=== PATIENT | female | born 1955 | race Caucasian/White ===

== ENCOUNTER 2019-05-23 16:42 | Emergency (ER) | payer MEDICARE ==
[~2019-05-23] VITALS: Ht 160 cm; Wt 66.2 kg
[~2019-05-23 16:42] MED LIST: ALLO300 PO; AMOCLA875 PO; ASPI81EC PO; CETI10 PO; CODACE30 PO; DIPATR PO; DULO60 PO; FLUT.05NI; FURO40 PO; GABA300 PO; Glucophage PO; HYDACE5 PO; HYOS.125 SL; Hair, Skin & N1 EACH PO; INSDET100 SQ; INSLI100I; LEVFLO250 PO; LORA10ER PO; MELO7.5 PO; METF500C PO; NIAC500 PO; OLME20-12. PO; OMEP20ER PO; OXYACE5T PO; POTCHL10ER PO; POTCHL20ER PO; PRAV40 PO; PRED20 PO; PREG75 PO; PROM25 PO; Pravachol PO; RANI150 PO; [UNRECOGNIZED DRUG - REMARK]
[2019-05-23] MEDS ORDERED: LISINOPRIL2.5 MG PO (16:56)
[2019-05-23] MEDS ORDERED: ATOR20 PO (16:56)
[2019-05-23 18:03] LABS: BASOPHILS ABSOLUTE AUTO 0.02 K/mm3 (0.00-0.23); BASOPHILS PERCENT AUTO 0 % (0-2); EOSINOPHILS ABSOLUTE AUTO 0.05 K/mm3 (0.00-0.68); EOSINOPHILS PERCENT AUTO 1 % (0-6); Hematocrit 42.3 % (33.0-51.0); Hemoglobin 13.9 g/dL (11.5-16.0); IMMATURE GRAN ABSOLUTE AUTO 0.03 K/mm3 (0.00-0.10); IMMATURE GRAN PERCENT AUTO 0 % (0-1); LYMPHOCYTES ABSOLUTE AUTO 0.86 K/mm3 (0.84-5.20); LYMPHOCYTES PERCENT AUTO 11 % (21-46); MONOCYTES ABSOLUTE AUTO 0.48 K/mm3 (0.16-1.47); MONOCYTES PERCENT AUTO 6 % (4-13); Mean Corpuscular HGB 29.2 pg (26.0-34.0); Mean Corpuscular HGB Conc 32.9 g/dL (31.5-36.5); Mean Corpuscular Volume 89 fL (80-100); Mean Platelet Volume 10.6 fL (9.1-12.4); NEUTROPHILS ABSOLUTE AUTO 6.34 K/mm3 (1.96-9.15); NEUTROPHILS PERCENT AUTO 81 % (41-73); Platelet Count 225 K/mm3 (150-400); RDW Coefficient Variation 12.5 % (11.7-14.2); RDW Standard Deviation 41.1 fL (35.1-46.3); Red Blood Cell Count 4.76 M/mm3 (3.80-5.20); White Blood Cell Count 7.78 K/mm3 (4.00-11.30)
[2019-05-23 18:15] LABS: Alanine Aminotransfer (ALT/SGP 24 U/L (12-78); Albumin, Blood 3.2 g/dL (3.4-5.0); Albumin/Globulin Ratio 0.8 (0.8-1.8); Alk Phos 132 U/L (50-136); Anion Gap 11 mmol/L (6-16); Aspartate Aminotrans (AST/SGOT 20 U/L (12-37); Bilirubin, Total 0.6 mg/dL (0.1-1.0); Blood Urea Nitrogen 30 mg/dL (8-24); Bun/Creatinine Ratio 27.3 (12.0-20.0); CO2, Blood 21 mmol/L (21-32); Calcium, Blood 8.5 mg/dL (8.5-10.1); Chloride, Blood 101 mmol/L (98-108); Glomerular Filtration Rate 53 (60-); Glucose, Blood 382 mg/dL (70-99); Potassium, Blood 4.3 mmol/L (3.5-5.5); Sodium, Blood 133 mmol/L (136-145); Total Protein, Blood 7.2 g/dL (6.4-8.2); Troponin I <0.015 ng/mL (0.000-0.040)
[2019-05-23] MEDS ORDERED: LOPE2C PO (19:00)
[2019-05-23] MEDS ORDERED: ONDA4ODT MM (19:00)
== END 2019-05-23 19:30 | disposition home or self-care (01) ==
LOC: ER 16:42
PROVIDERS: Physician Assistant
DX: R19.7 Diarrhea, unspecified (principal); R11.2 Nausea with vomiting, unspecified; I10 Essential (primary) hypertension; E11.9 Type 2 diabetes mellitus without complications; E78.5 Hyperlipidemia, unspecified
CPT/HCPCS: 36415; 80053; 83690; 84484; 85025; 93005; 93010; 96361; 96374; 96375; 99284-25; A9270-GY; J1170; J1815; J2405; J7120

== ENCOUNTER 2019-10-21 22:55 | Observation (INO) | payer MEDICARE ==
[~2019-10-21] VITALS: Ht 160 cm; Wt 73.0 kg
[~2019-10-21 22:55] MED LIST changes: +ATOR20 PO; -INSDET100 SQ; +LEVEMIR FL100 UNIT/2 SC; +LISINOPRIL2.5 MG PO; +LOPE2C PO; +ONDA4ODT MM
[2019-10-22 02:00] LABS: BASOPHILS ABSOLUTE AUTO 0.06 K/mm3 (0.00-0.23); BASOPHILS PERCENT AUTO 1 % (0-2); EOSINOPHILS ABSOLUTE AUTO 0.24 K/mm3 (0.00-0.68); EOSINOPHILS PERCENT AUTO 2 % (0-6); Hematocrit 38.9 % (33.0-51.0); Hemoglobin 12.8 g/dL (11.5-16.0); IMMATURE GRAN ABSOLUTE AUTO 0.06 K/mm3 (0.00-0.10); IMMATURE GRAN PERCENT AUTO 1 % (0-1); LYMPHOCYTES PERCENT AUTO 21 % (21-46); MONOCYTES ABSOLUTE AUTO 0.55 K/mm3 (0.16-1.47); MONOCYTES PERCENT AUTO 5 % (4-13); Mean Corpuscular HGB Conc 32.9 g/dL (31.5-36.5); Mean Corpuscular Volume 88 fL (80-100); Mean Platelet Volume 10.7 fL (9.1-12.4); NEUTROPHILS ABSOLUTE AUTO 7.73 K/mm3 (1.96-9.15); NEUTROPHILS PERCENT AUTO 71 % (41-73); Platelet Count 231 K/mm3 (150-400); RDW Coefficient Variation 12.9 % (11.7-14.2); RDW Standard Deviation 42.1 fL (35.1-46.3); Red Blood Cell Count 4.41 M/mm3 (3.80-5.20); White Blood Cell Count 10.94 K/mm3 (4.00-11.30)
[2019-10-22 02:11] LABS: Alanine Aminotransfer (ALT/SGP 23 U/L (12-78); Albumin, Blood 3.2 g/dL (3.4-5.0); Albumin/Globulin Ratio 0.9 (0.8-1.8); Alk Phos 153 U/L (50-136); Anion Gap 3 mmol/L (6-16); Aspartate Aminotrans (AST/SGOT 21 U/L (12-37); Bilirubin, Total 0.4 mg/dL (0.1-1.0); Blood Urea Nitrogen 27 mg/dL (8-24); Bun/Creatinine Ratio 40.4 (12.0-20.0); CO2, Blood 26 mmol/L (21-32); Calcium, Blood 8.2 mg/dL (8.5-10.1); Chloride, Blood 108 mmol/L (98-108); Creatinine, Blood 0.67 mg/dL (0.40-1.00); Globulin, Blood 3.6 g/dL (2.2-4.0); Glomerular Filtration Rate >60 (60-); Glucose, Blood 367 mg/dL (70-99); Potassium, Blood 4.8 mmol/L (3.5-5.5); Sodium, Blood 137 mmol/L (136-145); Total Protein, Blood 6.8 g/dL (6.4-8.2)
[2019-10-22] MEDS ORDERED: LOPE2C PO (02:54)
--- NOTE | 2019-10-22 08:01 | NUR ---
PT NEW ADMIT THIS SHIFT FOR LEFT ANKLE FX. PT VSS, PT DENIED PAIN T/O NIGHT. LLE ELEVATED IN BED, CAP REFILL WNL, PT REP N/T AT BASELINE. PT UP OOB W/1 ASSIST, IS USING CALL LIGHT FOR ASSISTANCE. AWAITING ORTHO CONSULT. BEDSIDE REPORT GIVEN TO DAY RN.
--- NOTE | 2019-10-22 19:38 | NUR ---
SHIFT SUMMARY PT HAS A L ANKLE FX. SHE IS AWAITING SURGERY WITH DR. BARBOSA THIS EVENING AT 1999. PT REPORTS HAVING A MITRA ALLERGY, SPECIAL EQUIPMENT NEEDED TO BE ORDERED. PT HAS BEEN TEARFUL AND EMOTIONAL T/O THE DAY, SHE REPORTS SOME FAMILY ISSUES. PAIN HAS BEEN MANAGED WITH IV PAIN MEDICATION X1. PT'S LLE HAS BEEN ELEVATED ON PILLOWS. SHE HAS REMAINED NPO T/O THE DAY. VSS. REPORT GIVEN TO ESTEBAN HERNANDEZ.
--- NOTE | 2019-10-22 19:55 | NUR ---
TAKEN TO OR VIA STRETCHER WITH BUFFONT CAP AND FACE MASK IN PLACE AND CHART AT BEDSIDE, ACCOMPANIED BY OR NURSE AND ANESTHIOLOGIST. REPORTED THAT SHE WILL GO TO ICU FOR RECOVERY AND THEN RETURN TO ROOM 215. WILL CONTINUE TO MONITOR.
--- NOTE | 2019-10-22 21:44 | NUR ---
PT TO ICU 2 FOR POST OP RECOVERY @ 2121, PT AROUSES TO VERBAL STIMULI, CONFUSION NOTED, ASKS IF SHE IS SWIMMING AND IF SHE IS AT HOME, REORIENTED PT TO LOCATION AND EVENT. PT ARRIVED ON 13L PER NRB, TRANSITIONED TO NC AND NOW ON RA, O2 SATURATIONS 95%. PT MOVES ALL EXTREMEMITES AND FOLLOWS DIRECTIONS. REPORTS SOME PAIN TO HEEL OF R FOOT, ELEVATED FOOT TO RELIEVE PRESSURE. SPLINT AND RAFAEL WRAP TO L FOOT, CAP REFFIL<3 SECONDS TO L TOES. BP REMAINS STABLE WITH SBP 150'S-160'S, MONITOR SHOWS SINUS RHYTHM WITH HR 80'S, RR 9-12, PT AFEBRILE.
--- NOTE | 2019-10-22 22:15 | NUR ---
RECEIVED HAND OFF FROM Adri RAND RN IN ICU USING SBAR. TRANSPORTED TO ROOM VIA STRETCHER. TRANSFERED TO BED WITH FULL STAFF ASSISTANCE, TOLERATED WELL. AAO X3, ZHAO, FOLLOWS ALL COMMANDS. REORIENTED TO ROOM, CALL SYSTEM, AND POC, VOICES UNDERSTANDING. LEFT LEG PLACED ON PILLOW FOR COMFORT. LEFT TOES ARE WARM TO TOUCH, WITH GOOD PULSES NOTED DISTALLY. WEB ROLL AND RAFAEL WRAP COVER LLE FROM KNEE TO TOES. HAD C/O PAIN IN RIGHT HEEL POST OP, BUT DENIES AT THIS TIME. RIGHT FA 18G PIV IS PATENT, FLUSHING WITH EASE, POST OP IVF INFUSING TO GRAVITY. WILL CHECK ORDERS. STATES TAHT SHE IS VERY HUNGRY, PROVIDED WITH JELLO, WATER, AND SUGAR FREE APPLE SAUCE. DENIES PAIN, DISCOMFORT OR FURTHER NEEDS AT THIS TIME. SAFETY MEASURES IN PLACE. WILL CONTINUE TO MONITOR.
--- NOTE | 2019-10-23 07:01 | NUR ---
SHIFT SUMMARY LYING IN SEMI FOWLERS WITH EYES OPEN. PAIN MANAGED WITH NORCO AND FENT. IVF INFUSING AND PT IS TOLERATING PO'S AT THIS TIME. DENIES PAIN, DISCOMFORT, OR FURTHER NEEDS AT THIS TIME. LEFT LEG ELEVATED ON PILLOW, SAFETY MEASURES IN PLACE. WILL CONTINUE TO MONITOR AND GIVE HAND OFF TO ONCOMING SHIFT USING SBAR DURING BEDSIDE REPORT.
--- NOTE | 2019-10-23 11:51 | NUR ---
10/23/19 1151 Ruth Ann Gallego VERIFICATIONS: EDIT CHART.
--- NOTE | 2019-10-23 12:42 | NUR ---
BLOOD GLUCOSE DR. ASH NOTIFIED OF LUNCH TIME CBG OF 264. SINCE CBG REMAINS ABOVE 200, DR. ASH WAS NOTIFIED. HE PUT IN ORDERS FOR INCREASE IN BASAL INSULIN DOSE. WILL CONTINUE TO MONITOR.
--- NOTE | 2019-10-23 19:36 | NUR ---
SHIFT SUMMARY PT IS POD# 1 FROM L ANKLE ORIF WITH DR. BARBOSA. PAIN HAS BEEN MANAGED WITH MINIMAL MEDICATION. SHE WAS ABLE TO WORK WITH THERAPY THIS SHIFT AND IS A 1 PERSON ASSIST WITH GAIT BELT AND WALKER. PLAN FOR POSSIBLE DISCHARGE TO SNF TOMORROW. VSS. REPORT GIVEN TO ESTEBAN HERNANDEZ.
--- NOTE | 2019-10-24 04:30 | NUR ---
SHIFT SUMMARY PT IS A/O X4 AND NEEDS 1X ASSIST WITH FWW AND GAIT BELT TO BEDSIDE COMMODE. PT HAS REPORTED SOME DISCOMFORT WITH MOVEMENT BUT DECLINED PAIN MEDS. PT IS TOLERATING PO INTAKE WELL AND IS VOIDING. NO ACUTE CHANGES OVERNIGHT. ASSISTED WITH ADL'S PRN.
--- NOTE | 2019-10-24 14:39 | NUR ---
SHIFT SUMMARY PT A&OX4, VSS, POD2 L ANKLE ORIF, SPLINT/RAFAEL CDI, CAP REFILL WNL, WIGGLES TOES, NWB LLE, EXTREMITY ELEVATED. PAIN MANAGED WELL WITH 5 MG OXYCODONE AND TYLENOL. SERENA PO, DENIES N&V. STAND PIVOTS TO BSC/CHAIR/BED WITH FWW & GB 1 MIN ASSIST. VOIDING WELL. WILL REPORT TO ONCOMING NOC RN.
--- NOTE | 2019-10-25 03:46 | NUR ---
SHIFT SUMMARY POD 3 RIGHT ORIF, RAFAEL WRAP/SPLINT C/D/I. A/OX4 W/VSS, NO TEMP. 1 ASSIST STAND/PIVOT WITH FWW/GB; NWB LLE. PAIN MANAGED WITH PO MEDICATION. SERENA REG DIET. APPEARS TO HAVE SLEPT WELL T/O NIGHT. NO ACUTE CHANGES THIS SHIFT. PLAN FOR SNF. WILL CONT TO MONITOR AND GIVE REPORT TO ONCOMING RN.
--- NOTE | 2019-10-25 08:38 | NUR ---
IMMODIUM REQ DR ASH RECENTLY IN TO SEE PT. PT REPORTS HAVING BM 2 DAYS AGO AND THAT SHE HAS TROUBLE WITH GETTING DIARRHEA AND THAT SHE IS CONCERNED THAT SHE HAS NOT HAD HER IMMODIUM THAT SHE USUALLY TAKES AT HOME. PT EDUCATED ON PAIN MEDICATION CAN ALSO CAUSE CONSTIPATION. PT REPORTS MORE CONCERNED OF HER GETTING DIARRHEA IF NOT TAKING IMMODIUM SHE USUALLY DOES AND THAT IF SHE STARTS FEELING CONSTIPATED THAT SHE WILL SIMPLY STOP TAKING HER IMMODIUM AND SHE WILL HAVE BM. PT MED PER HER REQ.
--- NOTE | 2019-10-25 09:16 | NUR ---
PT RECENTLY REPORTED THAT LANTUS DOSE MAY BE A LITTLE TO MUCH, THAT SHE HAD A SNACK EARLIER THIS AM APPROX 3:00-3:30 IN THE PHYSICS TUTOR AND CBG WAS LESS THAN 100. PT REPORTS TAKING 40-50 UNITS Q DAY DEPENDING ON CBG'S. NOTIFIED, REPORTS TO HOLD DOSE FOR NOW.
--- NOTE | 2019-10-25 10:23 | NUR ---
PT REQ TO HAVE LANTUS DURING DAYTIME INSTEAD OF AT NIGHT THAT WORKS BETTER FOR HER BODY. DR NOTIFIED. SEE ORDERS.
--- NOTE | 2019-10-25 12:34 | NUR ---
REPORT GIVEN TO ANJALI AT [facility] PT IS TO BE DISCHARGED TO REHAB TODAY. SKEIN BANDER ASSISTED WITH BELONGINGS. PT IS TO BE PICKED UP BY TRANSPORT.
--- NOTE | 2019-10-25 12:53 | NUR ---
PT OUT BY TRANSPORT TO [facility] WITH BELONGINGS INCLUDING PHONE AND DRIVER UTILITY WORKER. REPORT BEEN GIVEN.
== END 2019-10-25 12:50 ==
LOC: ER 22:55 → SURS 22:56
PROVIDERS: Emergency Medicine; Podiatrist Foot & Ankle Surgery; ADMIT Family Medicine
PROC: 0QSK04Z Reposition Left Fibula with Internal Fixation Device, Open Approach (ICD-10-PCS; principal; 2019-10-22 08:15)
PROC: 0QSH04Z Reposition Left Tibia with Internal Fixation Device, Open Approach (ICD-10-PCS; principal; 2019-10-22 08:15)
PROC: 0QSK0ZZ Reposition Left Fibula, Open Approach (ICD-10-PCS; principal; 2019-10-22 08:15)
DX: S82.852A Displaced trimalleolar fracture of left lower leg, initial encounter for closed fracture (principal); I10 Essential (primary) hypertension; E11.9 Type 2 diabetes mellitus without complications; Z88.8 Allergy status to other drugs, medicaments and biological substances; Z88.2 Allergy status to sulfonamides; Z79.4 Long term (current) use of insulin; Z79.899 Other long term (current) drug therapy; W18.11XA Fall from or off toilet without subsequent striking against object, initial encounter; Z87.891 Personal history of nicotine dependence
CPT/HCPCS: 27818; 73600; 73610; 73700; 80053; 82947; 85025; 93005; 93010; 96361; 96372; 96374-59; 96375-59; 96376; 97110; 97163; 97166; 97535; 99152; 99285-25; A9270; A9270-GY; C1713; C1769; G0378; J0690; J1100; J1650; J1815; J1885; J2250; J2405; J2704; J3010; J7030

== ENCOUNTER 2021-08-12 18:04 | Emergency (ER) | payer MEDICARE ==
[~2021-08-12] VITALS: Ht 162.6 cm; Wt 64.4 kg
== END 2021-08-12 20:57 | disposition home or self-care (01) ==
LOC: ER 18:04
DX: S01.81XA Laceration without foreign body of other part of head, initial encounter (principal); S60.222A Contusion of left hand, initial encounter; W01.198A Fall on same level from slipping, tripping and stumbling with subsequent striking against other object, initial encounter; Z88.2 Allergy status to sulfonamides; Z91.048 Other nonmedicinal substance allergy status; Z88.8 Allergy status to other drugs, medicaments and biological substances; Z79.899 Other long term (current) drug therapy; Z79.4 Long term (current) use of insulin; I10 Essential (primary) hypertension; E11.9 Type 2 diabetes mellitus without complications; E78.5 Hyperlipidemia, unspecified
CPT/HCPCS: 70450; 72125; 90471; 90714; 99284-25; A9270; L0160

== ENCOUNTER 2021-08-30 17:15 | Inpatient (IN) | payer MEDICARE ==
[~2021-08-30] VITALS: Ht 162.6 cm; Wt 61.8 kg
[~2021-08-30 17:15] MED LIST changes: +HUMALOG KW100 UNIT/1 SC; -INSLI100I
[2021-08-30 18:14] LABS: BASOPHILS ABSOLUTE AUTO 0.06 K/mm3 (0.00-0.23); BASOPHILS PERCENT AUTO 0 % (0-2); EOSINOPHILS PERCENT AUTO 0 % (0-6); Hematocrit 34.2 % (33.0-51.0); Hemoglobin 10.7 g/dL (11.5-16.0); IMMATURE GRAN ABSOLUTE AUTO 0.16 K/mm3 (0.00-0.10); IMMATURE GRAN PERCENT AUTO 1 % (0-1); LYMPHOCYTES ABSOLUTE AUTO 1.39 K/mm3 (0.84-5.20); LYMPHOCYTES PERCENT AUTO 9 % (21-46); MONOCYTES ABSOLUTE AUTO 0.95 K/mm3 (0.16-1.47); MONOCYTES PERCENT AUTO 6 % (4-13); Mean Corpuscular HGB 26.2 pg (26.0-34.0); Mean Corpuscular HGB Conc 31.3 g/dL (31.5-36.5); Mean Corpuscular Volume 84 fL (80-100); Mean Platelet Volume 8.8 fL (9.1-12.4); NEUTROPHILS ABSOLUTE AUTO 12.55 K/mm3 (1.96-9.15); NEUTROPHILS PERCENT AUTO 83 % (41-73); Platelet Count 545 K/mm3 (150-400); RDW Coefficient Variation 14.6 % (11.7-14.2); RDW Standard Deviation 44.7 fL (35.1-46.3); Red Blood Cell Count 4.08 M/mm3 (3.80-5.20); White Blood Cell Count 15.11 K/mm3 (4.00-11.30)
[2021-08-30 18:32] LABS: Alanine Aminotransfer (ALT/SGP 12 U/L (12-78); Albumin, Blood 2.1 g/dL (3.4-5.0); Albumin/Globulin Ratio 0.3 (0.8-1.8); Alk Phos 136 U/L (50-136); Anion Gap 10 mmol/L (6-16); Aspartate Aminotrans (AST/SGOT 20 U/L (12-37); Bilirubin, Total 0.7 mg/dL (0.1-1.0); Blood Urea Nitrogen 22 mg/dL (8-24); Bun/Creatinine Ratio 25.9 (12.0-20.0); CO2, Blood 28 mmol/L (21-32); Calcium, Blood 9.3 mg/dL (8.5-10.1); Chloride, Blood 92 mmol/L (98-108); Creatinine, Blood 0.85 mg/dL (0.40-1.00); Globulin, Blood 6.7 g/dL (2.2-4.0); Glomerular Filtration Rate >60 (60-); Glucose, Blood 324 mg/dL (70-99); Potassium, Blood 4.3 mmol/L (3.5-5.5); Sodium, Blood 130 mmol/L (136-145); Total Protein, Blood 8.8 g/dL (6.4-8.2)
[2021-08-30 20:35] LABS: Source, Urine Clean Catch
[2021-08-30 20:42] LABS: Blood, Urine 3+ (Neg); Glucose Qualitative, Urine Neg (Neg); Ketones, Urine 2+ (Neg); Leukocyte Esterase, Urine 1+ (Neg); Nitrite, Urine Neg (Neg); Protein, Urine 3+ (Neg); Urobilinogen, Urine 3+ (Normal)
[2021-08-30 20:49] LABS: Appearance, Urine Cloudy (Clear); Bilirubin, Urine 1+ (Neg); Color, Urine Yellow (P-Yellow)
[2021-08-30 20:51] LABS: Bacteria Many /hpf; Red Blood Cells, Urine 0-2 /hpf (0-2); Squamous Epithelial Cells Few /hpf (Few)
[2021-08-31 01:24] LABS: BASOPHILS ABSOLUTE AUTO 0.05 K/mm3 (0.00-0.23); BASOPHILS PERCENT AUTO 0 % (0-2); EOSINOPHILS ABSOLUTE AUTO 0.03 K/mm3 (0.00-0.68); EOSINOPHILS PERCENT AUTO 0 % (0-6); Hematocrit 25.2 % (33.0-51.0); Hemoglobin 8.2 g/dL (11.5-16.0); IMMATURE GRAN ABSOLUTE AUTO 0.14 K/mm3 (0.00-0.10); IMMATURE GRAN PERCENT AUTO 1 % (0-1); LYMPHOCYTES ABSOLUTE AUTO 2.76 K/mm3 (0.84-5.20); LYMPHOCYTES PERCENT AUTO 22 % (21-46); MONOCYTES ABSOLUTE AUTO 1.13 K/mm3 (0.16-1.47); MONOCYTES PERCENT AUTO 9 % (4-13); Mean Corpuscular HGB 26.6 pg (26.0-34.0); Mean Corpuscular HGB Conc 32.5 g/dL (31.5-36.5); Mean Corpuscular Volume 82 fL (80-100); Mean Platelet Volume 8.6 fL (9.1-12.4); NEUTROPHILS ABSOLUTE AUTO 8.24 K/mm3 (1.96-9.15); NEUTROPHILS PERCENT AUTO 67 % (41-73); Platelet Count 389 K/mm3 (150-400); RDW Coefficient Variation 14.6 % (11.7-14.2); RDW Standard Deviation 43.3 fL (35.1-46.3); Red Blood Cell Count 3.08 M/mm3 (3.80-5.20); White Blood Cell Count 12.35 K/mm3 (4.00-11.30)
[2021-08-31] MEDS ORDERED: CHOLESTYRAMI239.4 G1 PO (01:36)
[2021-08-31 01:38] LABS: Calcium, Blood 7.8 mg/dL (8.5-10.1); Creatinine, Blood 0.96 mg/dL (0.40-1.00); Potassium, Blood 3.8 mmol/L (3.5-5.5)
--- NOTE | 2021-08-31 05:19 | NUR ---
SHIFT SUMMARY: NEW ADMIT FROM ED UTI. PATIENT ENDORSES PAIN/BURNING WITH URNINATION AND BILATERAL FLANK PAIN. STATES SHE HAS INCREASED WEAKNESS AND INABILITY TO WALK DUE TO FALL. SCABBED LACERATION NOTED TO FOREHEAD. STATES HAS CHRONIC DIARRHEA AND TAKES IMODIUM DAILY. CHRONIC PAIN D/T FIBROMYALGIA. LEFT ANKLE SWOLLEN FROM SURGERY (2 YEARS AGO? SHE CANNOT REMEMBER WHEN). SEEKING PLACEMENT. [facility].
--- NOTE | 2021-08-31 13:11 | NUR ---
Upon receiving a referral for spiritual care, I visit pt. Pt is lying in bed and alert. Pt immediatelt tells me about her fall and her medical issues. She then tells me personal information about some of the emotional pain, family unit complications and challenges that she has endured. She also voices her fears about placement and the fears about going home without help. She shares about her [place] barbi and how valuable it is to her during this season. I encourage self-care, reinforce helpful attitudes and practices and provide therapeutic listening, spiritual guidance, anxiety containment and prayer. Patient responds well and shows signs of increased peace. I will continue to remain available to patient and family.
--- NOTE | 2021-08-31 17:59 | NUR ---
SHIFT SUMMARY PATIENT MEDICATED FOR PAIN X1. PATIENT DENIES NAUSEA AND SHORTNESS OF BREATH. PATIENT IS A SBA TO THE BATHROOM. PATIENT WORKED WITH PT AND OT. THEY ARE RECOMMENDING SNF. PATIENT SLEPT THIS AFTERNOON. ORDERS FOR STOOL SAMPLE, PATIENT EDUCATED, NO STOOL THIS SHIFT. PATIENT IS EATING AND DRINKING WELL. PATIENT IS PLEASANT AND COOPERATIVE WITH CARE.
--- NOTE | 2021-09-01 04:37 | NUR ---
SHIFT SUMMARY PT RESTED WELL, MED PER MAR FOR C/O CHRONIC BACK PAIN, PT REPOSITIONED AND HEATING PAD APPLIED TO LOWER BACK. PT SERENA PO WELL, NO C/O NAUSEA, VOIDING WITHOUT DIFFICULTY, NO BM THIS SHIFT, WAITING TO SEND STOOL SAMPLE PER ORDERS. VSS, SR NOTED ON TELE, AFEBRILE, ABX'S PER JUL. ANTICIPATE D/C WHEN MEDICALLY STABLE AND PLACEMENT DETERMINED.
[2021-09-01 08:25] LABS: BASOPHILS ABSOLUTE AUTO 0.07 K/mm3 (0.00-0.23); BASOPHILS PERCENT AUTO 1 % (0-2); EOSINOPHILS PERCENT AUTO 1 % (0-6); Hematocrit 25.5 % (33.0-51.0); IMMATURE GRAN PERCENT AUTO 1 % (0-1); LYMPHOCYTES ABSOLUTE AUTO 1.64 K/mm3 (0.84-5.20); LYMPHOCYTES PERCENT AUTO 17 % (21-46); MONOCYTES ABSOLUTE AUTO 0.66 K/mm3 (0.16-1.47); MONOCYTES PERCENT AUTO 7 % (4-13); Mean Corpuscular HGB 26.1 pg (26.0-34.0); Mean Corpuscular HGB Conc 31.4 g/dL (31.5-36.5); Mean Corpuscular Volume 83 fL (80-100); Mean Platelet Volume 8.8 fL (9.1-12.4); NEUTROPHILS ABSOLUTE AUTO 7.39 K/mm3 (1.96-9.15); NEUTROPHILS PERCENT AUTO 74 % (41-73); Platelet Count 369 K/mm3 (150-400); RDW Coefficient Variation 14.9 % (11.7-14.2); RDW Standard Deviation 45.1 fL (35.1-46.3); Red Blood Cell Count 3.06 M/mm3 (3.80-5.20); White Blood Cell Count 9.96 K/mm3 (4.00-11.30)
[2021-09-01 08:47] LABS: Bun/Creatinine Ratio 15.4 (12.0-20.0); Calcium, Blood 7.9 mg/dL (8.5-10.1); Creatinine, Blood 1.23 mg/dL (0.40-1.00)
--- NOTE | 2021-09-01 17:53 | NUR ---
SHIFT SUMMARY PATIENT MEDICATED FOR PAIN X1. PATIENT DENIES NAUSEA AND SHORTNESS OF BREATH. PATIENT IS A SBA WITH A FWW. PATIENT WORKED WITH PT AND OT. PATIENT AMBULATED IN THE HALLWAY TODAY WITH PT. PATIENT HAD POSITIVE URINE CULTURE FOR E.COLI. DR. JOHNS NOTIFIED. NEW ORDERS. PATIENT ALSO HAD POSITIVE BLOOD CULTURES X2 OVERNIGHT. MD AWARE. PATIENT IS EATING AND DRINKING WELL. PATIENT IS PLEASANT AND COOPERATIVE WITH CARE.
--- NOTE | 2021-09-02 06:28 | NUR ---
SHIFT SUMMARY PT RESTED WELL, C/O MILD PAIN TO LOWER BACK, MED PER JUL, UP WITH 1 ASSIST/WALKER, VOIDING WITHOUT DIFFICULTY, NO BM THIS SHIFT, UNABLE TO SEND STOOL SAMPLE YET. VSS, AFEBRILE, ABX'S PER JUL. ANTICIPATE D/C WHEN MEDICALLY STABLE AND PLACEMENT DETERMINED.
[2021-09-02 07:12] LABS: BASOPHILS ABSOLUTE AUTO 0.07 K/mm3 (0.00-0.23); BASOPHILS PERCENT AUTO 1 % (0-2); EOSINOPHILS ABSOLUTE AUTO 0.17 K/mm3 (0.00-0.68); EOSINOPHILS PERCENT AUTO 2 % (0-6); Hematocrit 25.4 % (33.0-51.0); Hemoglobin 7.9 g/dL (11.5-16.0); IMMATURE GRAN ABSOLUTE AUTO 0.07 K/mm3 (0.00-0.10); IMMATURE GRAN PERCENT AUTO 1 % (0-1); LYMPHOCYTES ABSOLUTE AUTO 1.89 K/mm3 (0.84-5.20); LYMPHOCYTES PERCENT AUTO 21 % (21-46); MONOCYTES ABSOLUTE AUTO 0.79 K/mm3 (0.16-1.47); MONOCYTES PERCENT AUTO 9 % (4-13); Mean Corpuscular HGB 26.2 pg (26.0-34.0); Mean Corpuscular HGB Conc 31.1 g/dL (31.5-36.5); Mean Corpuscular Volume 84 fL (80-100); Mean Platelet Volume 8.9 fL (9.1-12.4); NEUTROPHILS ABSOLUTE AUTO 6.18 K/mm3 (1.96-9.15); NEUTROPHILS PERCENT AUTO 67 % (41-73); Platelet Count 331 K/mm3 (150-400); RDW Coefficient Variation 14.8 % (11.7-14.2); RDW Standard Deviation 46.2 fL (35.1-46.3); Red Blood Cell Count 3.02 M/mm3 (3.80-5.20); White Blood Cell Count 9.17 K/mm3 (4.00-11.30)
[2021-09-02 07:32] LABS: Albumin, Blood 1.5 g/dL (3.4-5.0); Albumin/Globulin Ratio 0.3 (0.8-1.8); Bilirubin, Total 0.2 mg/dL (0.1-1.0); Bun/Creatinine Ratio 15.8 (12.0-20.0); Calcium, Blood 7.4 mg/dL (8.5-10.1); Creatinine, Blood 1.14 mg/dL (0.40-1.00); Globulin, Blood 5.3 g/dL (2.2-4.0); Potassium, Blood 3.6 mmol/L (3.5-5.5); Total Protein, Blood 6.8 g/dL (6.4-8.2)
[2021-09-02 08:39] LABS: IMMATURE RETIC FRACTION 15.6 % (2.3-16.0); RETIC HGB EQUIVALENT 25.5 pg (28.20-36.60); RETICULOCYTE COUNT PERCENT 1.93 % (0.50-2.50)
[2021-09-02 08:54] LABS: Percent Saturation 12.7 % (15.0-50.0)
--- NOTE | 2021-09-02 17:33 | NUR ---
SHIFT SUMMARY PT AWAKE DURING SHIFT REPORT, RESTING QUIETLY. NO C/O. UP TO BTHRM WITH SBA USING FWW NEEDED. UP TO CHAIR AT BS FOR MEALS. SR ON TELE. DR CABRALES IN TO SEE PT EARLY THIS AM. DISCUSSED PLAN OF CARE; ABX TO CHANGED. PT WILL NEED TO STAY ANOTHER DAY OR TWO. DR PATEL IN TO SEE PT WELL. NEW ORDERS PLACED. PT UP TO SHOWER THIS AFTERNOON. MEDICATED PER EMAR FOR C/O BACK PAIN. DENIED FURTHER NEEDS AT THIS TIME. SITTING IN CHAIR AT BS, EATING DINNER. CALL LT IN REACH.
[2021-09-03 04:48] LABS: BASOPHILS ABSOLUTE AUTO 0.05 K/mm3 (0.00-0.23); BASOPHILS PERCENT AUTO 1 % (0-2); EOSINOPHILS ABSOLUTE AUTO 0.26 K/mm3 (0.00-0.68); EOSINOPHILS PERCENT AUTO 2 % (0-6); Hematocrit 25.8 % (33.0-51.0); IMMATURE GRAN ABSOLUTE AUTO 0.09 K/mm3 (0.00-0.10); IMMATURE GRAN PERCENT AUTO 1 % (0-1); LYMPHOCYTES PERCENT AUTO 21 % (21-46); MONOCYTES ABSOLUTE AUTO 0.86 K/mm3 (0.16-1.47); MONOCYTES PERCENT AUTO 8 % (4-13); Mean Corpuscular Volume 84 fL (80-100); Mean Platelet Volume 8.7 fL (9.1-12.4); NEUTROPHILS ABSOLUTE AUTO 7.44 K/mm3 (1.96-9.15); NEUTROPHILS PERCENT AUTO 68 % (41-73); Platelet Count 301 K/mm3 (150-400); Red Blood Cell Count 3.08 M/mm3 (3.80-5.20)
[2021-09-03 05:16] LABS: Anion Gap 6 mmol/L (6-16); Blood Urea Nitrogen 17 mg/dL (8-24); Bun/Creatinine Ratio 21.9 (12.0-20.0); CO2, Blood 28 mmol/L (21-32); Calcium, Blood 7.4 mg/dL (8.5-10.1); Chloride, Blood 101 mmol/L (98-108); Creatinine, Blood 0.78 mg/dL (0.40-1.00); Glomerular Filtration Rate >60 (60-); Glucose, Blood 163 mg/dL (70-99); Potassium, Blood 3.6 mmol/L (3.5-5.5); Sodium, Blood 135 mmol/L (136-145)
--- NOTE | 2021-09-03 06:28 | NUR ---
SHIFT SUMMARY PT RESTED WELL, MED PER MAR FOR C/O CHRONIC PAIN, SERENA PO WELL, VOIDING WITHOUT DIFFICULTY. PT HAD A LARGE, SOFT, BROWN STOOL THIS AM, SAMPLE SENT TO LAB PER ORDERS. VSS, UP WITH 1 PERSON ASSIST/ WALKER. AFEBRILE, ABX'S PER MAR, ANTICIPATE D/C WHEN MEDICALLY STABLE AND PLACEMENT DETERMINED.
[2021-09-03 08:26] LABS: Adenovirus F 40/41 Not Detected (NOT DETECT); Astrovirus Not Detected (NOT DETECT); Campylobacter Sp Not Detected (NOT DETECT); Cryptosporidium Not Detected (NOT DETECT); Cyclospora Cayetanensis Not Detected (NOT DETECT); E. Coli O157 Not Detected (NOT DETECT); Entamoeba Histolytica Not Detected (NOT DETECT); Enteroaggregative E. coli-EAEC Not Detected (NOT DETECT); Enteropathogenic E. coli-EPEC Not Detected (NOT DETECT); Enterotoxigenic E. coli-ETEC Not Detected (NOT DETECT); Giardia Lamblia Not Detected (NOT DETECT); Norovirus GI/GII Not Detected (NOT DETECT); Plesiomonas Shigelloides Not Detected (NOT DETECT); Rotavirus A Not Detected (NOT DETECT); Salmonella Sp Not Detected (NOT DETECT); Sapovirus Not Detected (NOT DETECT); Shiga Toxin-prod E. coli-STEC Not Detected (NOT DETECT); Shigella/Enteroin E. coli-EIEC Not Detected (NOT DETECT); Vibrio Cholerae Not Detected (NOT DETECT); Vibrio Sp Not Detected (NOT DETECT); Yersinia Enterocolitica Not Detected (NOT DETECT)
[2021-09-03 10:33] LABS: Stool Occult Blood Guaiac 1 Neg (Neg)
--- NOTE | 2021-09-03 16:39 | NUR ---
SHIFT SUMMARY NO ACUTE CHANGES TO PRESENT THIS SHIFT. PT CONTINUES TO RECEIVE IV ABX PER EMAR AND THEN POSSIBLE D/C TO SNF IN THE NEXT DAY OR TWO. PT IS A&O, PLEASANT AND CO-OP. UP WITH SBA USING FWW TO BTHRM. PT UP TO SHOWER THIS AM WELL. LINENS AND GOWN CHANGED. UP TO CHAIR FOR MEALS. CALLS FOR ASSIST NEEDED. IN TO VISIT THIS AFTERNOON. DENIES FURTHER NEEDS AT THIS TIME. CALL LT IN REACH.
--- NOTE | 2021-09-04 02:53 | NUR ---
CRYSTAL MACHINING COORDINATOR SUMMARY HAS BEEN RESTING QUIETLY WITH FEW INTERRUPTIONS SINCE HS. VSS. NO NOTED S/S ACUTE DISTRESS. ORIENTED TO CALL LIGHT, CALL LIGHT IN REACH.
[2021-09-04 05:00] LABS: BASOPHILS ABSOLUTE AUTO 0.06 K/mm3 (0.00-0.23); BASOPHILS PERCENT AUTO 1 % (0-2); EOSINOPHILS ABSOLUTE AUTO 0.17 K/mm3 (0.00-0.68); EOSINOPHILS PERCENT AUTO 2 % (0-6); Hematocrit 27.1 % (33.0-51.0); Hemoglobin 8.3 g/dL (11.5-16.0); IMMATURE GRAN PERCENT AUTO 1 % (0-1); LYMPHOCYTES ABSOLUTE AUTO 2.32 K/mm3 (0.84-5.20); LYMPHOCYTES PERCENT AUTO 22 % (21-46); MONOCYTES ABSOLUTE AUTO 0.84 K/mm3 (0.16-1.47); MONOCYTES PERCENT AUTO 8 % (4-13); Mean Corpuscular HGB 25.9 pg (26.0-34.0); Mean Corpuscular HGB Conc 30.6 g/dL (31.5-36.5); Mean Corpuscular Volume 85 fL (80-100); Mean Platelet Volume 8.5 fL (9.1-12.4); NEUTROPHILS PERCENT AUTO 67 % (41-73); Platelet Count 300 K/mm3 (150-400); RDW Coefficient Variation 15.1 % (11.7-14.2); RDW Standard Deviation 46.5 fL (35.1-46.3); White Blood Cell Count 10.49 K/mm3 (4.00-11.30)
[2021-09-04 05:33] LABS: Anion Gap 7 mmol/L (6-16); Blood Urea Nitrogen 19 mg/dL (8-24); Bun/Creatinine Ratio 24.5 (12.0-20.0); CO2, Blood 28 mmol/L (21-32); Calcium, Blood 7.5 mg/dL (8.5-10.1); Chloride, Blood 103 mmol/L (98-108); Creatinine, Blood 0.77 mg/dL (0.40-1.00); Glomerular Filtration Rate >60 (60-); Glucose, Blood 158 mg/dL (70-99); Potassium, Blood 3.6 mmol/L (3.5-5.5); Sodium, Blood 138 mmol/L (136-145)
--- NOTE | 2021-09-04 18:17 | NUR ---
SHIFT SUMMARY- PT ALERT AND ORIENTED, 1PA FOR TRANSFERS, PT IS A HIGH FALL RISK, BUT SHE CALLS APPROPRIATELY. PT IS ORIENTED AND ALERT. PLAN IS FOR PT TO DC TO SNF FOR BODY TECHNICIAN ABX AND PT. PT STATED SHE HAD HER CELL PHONE WITH HER IN THE HOSPITAL AND YESTERDAY SHE BELIEVES IT WENT OUT WITH THE DIRTY [facility]. CONTACTED PT [employer] FOR HER THEY ARE WORKING TO SEE IF IT CAN BE LOCATED, PATIENT IS AWARE. PT CURRENTLY SITTING UP IN THE CHAIR, CALL LIGHT IN REACH NO S&S OF DISTRESS WILL CTM AND PASS ON TO NIGHT RN IN BEDSIDE REPORT.
--- NOTE | 2021-09-05 03:22 | NUR ---
BRANCH CHIEF SUMMARY HAS BEEN RESTING QUIETLY WITH FEW INTERRUPTIONS SINCE HS. VSS. IV ANTIBIOTICS ADMINISTERED ORDERED - SEE MAR FOR DETAILS. UP TO BATHROOM WITH ASSIST A FWE TIMES, VOIDED CLEAR YELLOW. CALL LIGHT IN REACH. NO C/O VOICED
--- NOTE | 2021-09-05 17:50 | NUR ---
DAY SHIFT SUMMARY 65 YR OLD FEMALE PT ADMITTED WITH UTI/SEPSIS. WAITING SNF PLACEMENT. A/O X4, PT ON RA, LUNG SOUNDS DIM AT BASES. NO ACUTE CHANGES THIS SHIFT. CALL LIGHT IN REACH, ABLE TO CALL APPROPRIATELY.
--- NOTE | 2021-09-06 06:13 | NUR ---
SHIFT SUMMARY PT IS A 65 Y/O FEMALE, ADMITTED FOR SEPSIS AND UTI. SHE IS A&O X 4, 1PA TO THE BATHROOM. SHE WAS MEDICATED FOR LOWER BACK PAIN WITH PRN TYLENOL. NO C/O NAUSEA OR SOB. VITAL SIGNS STABLE. NO ACUTE CHANGES IN PT CONDITION NOTED DURING THE NIGHT. WILL CONTINUE TO MONITOR AND TREAT PER EMAR UNTIL HAND OFF TO DAY SHIFT RN.
[2021-09-06] MEDS ORDERED: CEFAZOLIN2 GM/50 M3 (12:57)
[2021-09-06] MEDS ORDERED: FOLI1 PO (12:58)
[2021-09-06] MEDS ORDERED: VISBIOME 112.51 EACH PO (12:59)
--- NOTE | 2021-09-06 16:35 | NUR ---
DAY SHIFT SUMMARY 65 YR OLD FEMALE ADMITTED WITH SEPSIS. PT IS A STANDBY ASSIST WITH WALKER TO BATHROOM. ABLE TO GET BACK AND FORTH FROM BED TO CHAIR AND BACK TO BED WITH STANDBY AND WALKER. WAITING SNF PLACEMENT FOR REHAB AND ABX IV THERAPY. DISCHARGE ORDERS WAITING INSURANCE AUTHORIZATION FOR REHAB. [facility] WITH COVERAGE. PT ON RA. CALL LIGHT WITHIN REACH AND ABLE TO CALL APPROPRIATELY. NO ACUTE CHANGES THIS SHIFT.
--- NOTE | 2021-09-07 03:03 | NUR ---
SHIFT SUMMARY NO ACUTE CHANGES OVERNIGHT. PT DENIES PAIN T/O SHIFT. SLEPT GOOD. VOIDS WITHOUT ISSUE WITH THE USE OF BATHROOM WITH SBA AND FWW. VSS. CBG HS WAS 250. SALINE LOCKED. IV ABX ADMINISTERED. ADA DIET WITH AC/HS. TOLERATING PO INTAKE. DENIES N/V. PLAN: PENDING FOR SNF PLACEMENT AND ABX [facility] TREATMENT. CALL LIGHT WITHIN REACH. WILL PROVIDE REPORT TO ONCOMING NURSE.
[2021-09-07 11:02] LABS: Influenza A, PCR NEGATIVE (NEGATIVE); Influenza B, PCR NEGATIVE (NEGATIVE); Resp Syncytial Virus, PCR NEGATIVE (NEGATIVE); SARS-Cov-2 (COVID-19) PCR, MMC NEGATIVE (NEGATIVE)
--- NOTE | 2021-09-07 14:49 | NUR ---
DISCHARGE SUMMARY PATIENT DISCHARGED TO [facility] FOR IV ANTIBIOTIC TREATMENT. REPORT CALLED TO NEDA HERNANDEZ. ALL QUESTIONS ANSWERED. PATIENT TAKEN VIA PERSONAL VEHICLE AND THIS WAS APPROVED BY CN AND RECEIVING FACILITY. POWERGLIDE PLACED PRIOR TO DISCHARGE, ALL OTHER IV'S REMOVED. PATIENT GIVEN DISCHARGE PACKET FOR [facility]. PATIENT AND ALL BELONGINGS TAKEN TO PERSONAL VEHICLE VIA WHEELCHAIR AND TO TRANSPORT PATIENT TO [facility].
== END 2021-09-07 14:42 | DRG 872 ==
LOC: ER 17:15 → MEDS 17:16 → ENPENDDIS 09-06 16:45 → MEDS 09-07 14:42
PROVIDERS: Family Medicine; Physician Assistant; Student in an Organized Health Care Education/Training Program; ADMIT Internal Medicine
DX: A41.01 Sepsis due to Methicillin susceptible Staphylococcus aureus (principal); N39.0 Urinary tract infection, site not specified; E87.1 Hypo-osmolality and hyponatremia; I10 Essential (primary) hypertension; Z20.822 Contact with and (suspected) exposure to COVID-19; D72.829 Elevated white blood cell count, unspecified; D64.9 Anemia, unspecified; M21.962 Unspecified acquired deformity of left lower leg; K52.9 Noninfective gastroenteritis and colitis, unspecified; E78.5 Hyperlipidemia, unspecified; E87.6 Hypokalemia; G89.29 Other chronic pain; M54.9 Dorsalgia, unspecified; E11.9 Type 2 diabetes mellitus without complications; M79.7 Fibromyalgia; E78.00 Pure hypercholesterolemia, unspecified; E86.0 Dehydration; Z79.4 Long term (current) use of insulin; Z79.899 Other long term (current) drug therapy; Z88.2 Allergy status to sulfonamides; Z88.8 Allergy status to other drugs, medicaments and biological substances; Z86.73 Personal history of transient ischemic attack (TIA), and cerebral infarction without residual deficits
CPT/HCPCS: 0241U; 36415; 70450; 80048; 80053; 81001; 82272; 82607; 82728; 82746; 82947; 83540; 83550; 83605; 85025; 85045; 87040; 87077; 87086; 87186; 87507; 93306; 96374; 96375; 97110; 97116; 97116-CQ; 97161; 97166; 97530; 97535; 99285-25; A9270; J0690; J0696; J1650; J1815; J1885; J2543; J3370; J3480; J7030; J7040; J7050; P9612

== ENCOUNTER 2021-10-27 11:44 | Emergency (ER) | payer MEDICARE ==
[~2021-10-27] VITALS: Ht 162.6 cm; Wt 59.9 kg
[~2021-10-27 11:44] MED LIST changes: +CEFAZOLIN2 GM/50 M3; +CHOLESTYRAMI239.4 G1 PO; +FOLI1 PO; +VISBIOME 112.51 EACH PO
[2021-10-27 13:49] LABS: BASOPHILS ABSOLUTE AUTO 0.05 K/mm3 (0.00-0.23); BASOPHILS PERCENT AUTO 0 % (0-2); EOSINOPHILS ABSOLUTE AUTO 0.03 K/mm3 (0.00-0.68); EOSINOPHILS PERCENT AUTO 0 % (0-6); Hematocrit 32.9 % (33.0-51.0); Hemoglobin 10.4 g/dL (11.5-16.0); IMMATURE GRAN ABSOLUTE AUTO 0.03 K/mm3 (0.00-0.10); IMMATURE GRAN PERCENT AUTO 0 % (0-1); LYMPHOCYTES ABSOLUTE AUTO 1.13 K/mm3 (0.84-5.20); LYMPHOCYTES PERCENT AUTO 10 % (21-46); MONOCYTES ABSOLUTE AUTO 0.58 K/mm3 (0.16-1.47); MONOCYTES PERCENT AUTO 5 % (4-13); Mean Corpuscular HGB 26.7 pg (26.0-34.0); Mean Corpuscular HGB Conc 31.6 g/dL (31.5-36.5); Mean Corpuscular Volume 84 fL (80-100); Mean Platelet Volume 9.1 fL (9.1-12.4); NEUTROPHILS ABSOLUTE AUTO 9.87 K/mm3 (1.96-9.15); NEUTROPHILS PERCENT AUTO 84 % (41-73); Platelet Count 348 K/mm3 (150-400); RDW Coefficient Variation 16.6 % (11.7-14.2); RDW Standard Deviation 51.1 fL (35.1-46.3); White Blood Cell Count 11.69 K/mm3 (4.00-11.30)
[2021-10-27 14:04] LABS: Albumin, Blood 2.8 g/dL (3.4-5.0); Albumin/Globulin Ratio 0.5 (0.8-1.8); Bilirubin, Total 0.7 mg/dL (0.1-1.0); Bun/Creatinine Ratio 40.4 (12.0-20.0); Calcium, Blood 9.6 mg/dL (8.5-10.1); Creatinine, Blood 0.82 mg/dL (0.40-1.00); Globulin, Blood 5.1 g/dL (2.2-4.0); Potassium, Blood 4.2 mmol/L (3.5-5.5); Total Protein, Blood 7.9 g/dL (6.4-8.2)
[2021-10-27 14:14] LABS: Source, Urine Straight Cath
[2021-10-27 14:32] LABS: Appearance, Urine Clear (Clear); Bilirubin, Urine Neg (Neg); Blood, Urine 2+ (Neg); Color, Urine Yellow (P-Yellow); Glucose Qualitative, Urine Neg (Neg); Ketones, Urine 1+ (Neg); Leukocyte Esterase, Urine Neg (Neg); Nitrite, Urine Neg (Neg); Protein, Urine 3+ (Neg); Specific Gravity, Urine 1.015 (1.003-1.022); Urobilinogen, Urine 1+ (Normal)
[2021-10-27 14:42] LABS: Bacteria Mod /hpf; Squamous Epithelial Cells Few /hpf (Few)
== END 2021-10-27 17:19 | disposition home or self-care (01) ==
LOC: ER 11:44
PROVIDERS: Emergency Medicine
DX: N12 Tubulo-interstitial nephritis, not specified as acute or chronic (principal); E11.9 Type 2 diabetes mellitus without complications; M79.7 Fibromyalgia; Z79.4 Long term (current) use of insulin; Z79.899 Other long term (current) drug therapy
CPT/HCPCS: 36415; 74177; 80053; 81001; 83605; 83690; 85025; 93005; 93010; 96374; 99284-25; A9270; J1956; J7030; P9612; Q9967

== ENCOUNTER 2021-10-28 16:20 | Inpatient (IN) | payer MEDICARE ==
[~2021-10-28] VITALS: Ht 162.6 cm; Wt 61.4 kg
[2021-10-28 16:55] LABS: BASOPHILS ABSOLUTE AUTO 0.04 K/mm3 (0.00-0.23); BASOPHILS PERCENT AUTO 1 % (0-2); EOSINOPHILS ABSOLUTE AUTO 0.08 K/mm3 (0.00-0.68); EOSINOPHILS PERCENT AUTO 1 % (0-6); Hematocrit 31.9 % (33.0-51.0); Hemoglobin 10.1 g/dL (11.5-16.0); IMMATURE GRAN ABSOLUTE AUTO 0.03 K/mm3 (0.00-0.10); IMMATURE GRAN PERCENT AUTO 0 % (0-1); LYMPHOCYTES ABSOLUTE AUTO 2.02 K/mm3 (0.84-5.20); LYMPHOCYTES PERCENT AUTO 24 % (21-46); MONOCYTES ABSOLUTE AUTO 0.73 K/mm3 (0.16-1.47); MONOCYTES PERCENT AUTO 9 % (4-13); Mean Corpuscular HGB 26.7 pg (26.0-34.0); Mean Corpuscular HGB Conc 31.7 g/dL (31.5-36.5); Mean Corpuscular Volume 84 fL (80-100); NEUTROPHILS ABSOLUTE AUTO 5.55 K/mm3 (1.96-9.15); NEUTROPHILS PERCENT AUTO 66 % (41-73); Platelet Count 376 K/mm3 (150-400); RDW Coefficient Variation 16.7 % (11.7-14.2); RDW Standard Deviation 51.4 fL (35.1-46.3); Red Blood Cell Count 3.78 M/mm3 (3.80-5.20); White Blood Cell Count 8.45 K/mm3 (4.00-11.30)
[2021-10-28 17:07] LABS: Albumin, Blood 2.5 g/dL (3.4-5.0); Albumin/Globulin Ratio 0.5 (0.8-1.8); Bilirubin, Total 0.3 mg/dL (0.1-1.0); Bun/Creatinine Ratio 27.1 (12.0-20.0); Calcium, Blood 9.1 mg/dL (8.5-10.1); Creatinine, Blood 0.89 mg/dL (0.40-1.00); Globulin, Blood 4.9 g/dL (2.2-4.0); Potassium, Blood 3.9 mmol/L (3.5-5.5); Total Protein, Blood 7.4 g/dL (6.4-8.2)
--- NOTE | 2021-10-29 01:38 | NUR ---
ON 10/28/2021 AT 2051, PT ADMITTED FROM ER TO ROOM 364 VIA STRETCHER. PT A & OX4. REPORTED GIVEN TO CLINICAL OPERATIONS CONSULTANT BY JER BRAGA NURSE.
[2021-10-29 04:33] LABS: BASOPHILS ABSOLUTE AUTO 0.03 K/mm3 (0.00-0.23); BASOPHILS PERCENT AUTO 0 % (0-2); EOSINOPHILS ABSOLUTE AUTO 0.05 K/mm3 (0.00-0.68); EOSINOPHILS PERCENT AUTO 1 % (0-6); Hemoglobin 8.7 g/dL (11.5-16.0); IMMATURE GRAN ABSOLUTE AUTO 0.02 K/mm3 (0.00-0.10); IMMATURE GRAN PERCENT AUTO 0 % (0-1); LYMPHOCYTES ABSOLUTE AUTO 1.63 K/mm3 (0.84-5.20); LYMPHOCYTES PERCENT AUTO 22 % (21-46); MONOCYTES ABSOLUTE AUTO 0.65 K/mm3 (0.16-1.47); MONOCYTES PERCENT AUTO 9 % (4-13); Mean Corpuscular HGB 26.4 pg (26.0-34.0); Mean Corpuscular HGB Conc 31.1 g/dL (31.5-36.5); Mean Corpuscular Volume 85 fL (80-100); Mean Platelet Volume 8.9 fL (9.1-12.4); NEUTROPHILS ABSOLUTE AUTO 5.04 K/mm3 (1.96-9.15); NEUTROPHILS PERCENT AUTO 68 % (41-73); Platelet Count 305 K/mm3 (150-400); RDW Coefficient Variation 16.7 % (11.7-14.2); RDW Standard Deviation 52.6 fL (35.1-46.3); White Blood Cell Count 7.42 K/mm3 (4.00-11.30)
--- NOTE | 2021-10-29 04:54 | NUR ---
A&OX4. BP:SYS>160; PRN HYDRALAZINE IV GIVEN FOR HTN PER EMAR. HTN RESOLVED. V/S WNL. UP TO BSC,1-ASSIST WITH FWW&GB. SCD'S IN PLACE AND ON. TELE:SR AT A HR OF 83BPM. IV TO L) AC; NS INFUSING AT 100 ML/HR ORDERED. VOIDS W/O DIFFICULTY. NO BM THIS SHIFT. REGULAR DIET. ACUCHECKS AC&HS. HS BS 177. NO N/V. PRN TRAMADOL AND TYLENOL GIVEN FOR PAIN PER EMAR. FULL CODE. WILL CONTINUE TO MONITOR.
[2021-10-29 05:00] LABS: Bun/Creatinine Ratio 26.4 (12.0-20.0); Calcium, Blood 8.7 mg/dL (8.5-10.1); Creatinine, Blood 0.87 mg/dL (0.40-1.00); Potassium, Blood 3.6 mmol/L (3.5-5.5)
[2021-10-29 10:00] LABS: U Amphetamine Screen Not Detected; U Barbituate Screen Not Detected; U Benzodiazapine Screen Not Detected; U Buprenorphine Screen Not Detected; U Cannabinoids Screen Not Detected; U Cocaine Screen Not Detected; U Methadone Screen Not Detected; U Methamphetamine Screen Not Detected; U Opiates Screen DETECTED; U Oxycodone Screen DETECTED; U Phencyclidine Screen Not Detected; U Propoxyphene Screen Not Detected
--- NOTE | 2021-10-29 17:55 | NUR ---
PATIENT IS ALERT AND ORIENTED AND COOPERATIVE WITH CARE. SHE C/O ABD/BACK PAIN 15/10 AT THE BEGINNING OF THE SHIFT, MEDICATED PER EMAR. DR. DELGADO ORDERED A NEW PAIN MEDICATION THIS SHIFT AND THE PATIENT STATES IT HAS WORKED A LOT BETTER FOR HER. SHE WAS ABLE TO SLEEP THIS SHIFT. C/O PAIN 5/10 NOW. 1PA WITH FWW TO THE BSC. WILL CONTINUE TO MONITOR
--- NOTE | 2021-10-30 04:56 | NUR ---
A&OX4. HYPERTENSIVE TWICE THIS SHIFT. PRN HYDRALAZINE IV GIVEN FOR BP:SYS>160. HTN RESOLVED BOTH TIMES. ALL OTHER V/S WNL. TELE: SR AT A HR OF 86BPM. UP TO BSC TWICE WITH FWW,1-ASSIST. NWB TO L) FOOT. VOIDS W/O DIFFICULTY. NO BM THIS SHIFT. IV TO L) AC. ADA DIET.ACCUCHECKS AC&HS. HS BS:148. PRN NORCO GIVEN FOR PAIN TWICE AND TYLENOL ONCE FOR PAIN PER EMAR. WILL CONTINUE TO MONITOR.
--- NOTE | 2021-10-31 05:10 | NUR ---
HOTEL REGISTRATION CLERK SUMMARY HAS BEEN RESTING QUIETLY WITH FEW INTERRUPTIONS SINCE HS. VOICED PAIN OF RIGHT ABD, RECEIVED ANALGESIC - SEE MAR FOR DETAILS. MED [employer] SR. CALL LIGHT IN REACH. BP WAS ELEVATED NEAR SHIFT COMMENCE, ANTIHYPERTENSIVE ADMINISTERED AND BP TRENDED BACK TO WNL
[2021-10-31 06:12] LABS: BASOPHILS ABSOLUTE AUTO 0.05 K/mm3 (0.00-0.23); BASOPHILS PERCENT AUTO 1 % (0-2); EOSINOPHILS PERCENT AUTO 3 % (0-6); Hematocrit 28.9 % (33.0-51.0); IMMATURE GRAN ABSOLUTE AUTO 0.03 K/mm3 (0.00-0.10); IMMATURE GRAN PERCENT AUTO 0 % (0-1); LYMPHOCYTES ABSOLUTE AUTO 2.04 K/mm3 (0.84-5.20); LYMPHOCYTES PERCENT AUTO 27 % (21-46); MONOCYTES ABSOLUTE AUTO 0.64 K/mm3 (0.16-1.47); MONOCYTES PERCENT AUTO 9 % (4-13); Mean Corpuscular HGB 26.4 pg (26.0-34.0); Mean Corpuscular HGB Conc 31.1 g/dL (31.5-36.5); Mean Corpuscular Volume 85 fL (80-100); Mean Platelet Volume 8.4 fL (9.1-12.4); NEUTROPHILS ABSOLUTE AUTO 4.56 K/mm3 (1.96-9.15); NEUTROPHILS PERCENT AUTO 61 % (41-73); Platelet Count 334 K/mm3 (150-400); RDW Coefficient Variation 16.5 % (11.7-14.2); RDW Standard Deviation 51.8 fL (35.1-46.3); Red Blood Cell Count 3.41 M/mm3 (3.80-5.20); White Blood Cell Count 7.52 K/mm3 (4.00-11.30)
[2021-10-31 06:25] LABS: Bun/Creatinine Ratio 19.8 (12.0-20.0); Creatinine, Blood 0.81 mg/dL (0.40-1.00); Potassium, Blood 3.8 mmol/L (3.5-5.5)
[2021-10-31 17:41] LABS: Vancomycin, Trough 14.8 ug/mL (5.0-10.0)
--- NOTE | 2021-10-31 19:07 | NUR ---
PT IS A/OX4, PLEASANT AND COOP[ERATIVE. THE PT IS UP WITH ASSIST TO THE BSC. PT WAS MEDICATED FOR ABD PAIN T/O THE DAY. THE PT APPEARS TO BE BREATHING EASILY ON RA AT THIS TIME. AUTOMOTIVE ELECTRICAL FITTER WAS CONSULTED AND SEEN THE PT THIS AFTERNOON. VSS, CALL LIGHT IN REACH
--- NOTE | 2021-11-01 04:06 | NUR ---
SAXOPHONE TEACHER SUMMARY RESTING QUIETLY WITH FEW INTERRUPTIONS SINCE HS. RECEIVING ANTIBIOTICS ORDERED, PAIN MED X 1 THIS SHIFT FOR C/O BACK PAIN. ANOTHER BLOOD CULTURE REPORTED PER LAB POSITIVE COCCI IN [place] WAS THE CULTURE DRAWN 10/30. CHARGE NURSE NOTIFIED. WAS ASSISTED TO AND FROM BEDSIDE COMMODE TO VOID. CALL LIGHT IN REACH. RESTING QUIETLY AT THIS TIME
--- NOTE | 2021-11-01 16:08 | NUR ---
PT IS A/OX4, PLEASANT AND COOPERATIVE. THE PT CONTINUES TO REPORT BACK PAIN AND ABD TENDERNESS TODAY. THE PT WAS MEDICATED FOR PAIN T/O THE DAY. THE PT IS UP WITH MINIMAL ASSIST TO THE BSC TODAY. THE PT APPEARS TO BE BREATHING EASILY ON RA AT THIS TIME. AIRCRAFT ENGINE SPECIALIST CONSULTED ON THE PT TODAY AND A JOSE IS PLANNED FOR TOMORROW, THE PT IS TO BE NPO AFTER MN. CALL LIGHT IN REACH, WILL CONTINUE TO MONITOR AND ASSESS FOR CHANGES
[2021-11-01 16:40] LABS: Influenza A, PCR NEGATIVE (NEGATIVE); Influenza B, PCR NEGATIVE (NEGATIVE); Resp Syncytial Virus, PCR NEGATIVE (NEGATIVE); SARS-Cov-2 (COVID-19) PCR, MMC NEGATIVE (NEGATIVE)
--- NOTE | 2021-11-02 05:50 | NUR ---
SHIFT SUMMARY ADMITTED FOR UTI/SEPSIS, BACTEREMIA. FULL CODE. PLAN IS FOR JOSE TODAY TO R/O ENDOCARDITIS. SHE IS A&O X4, RA, STANDBY ASSIST TO BSC. HX OF NEUROPATHY, FALLS AND LEFT ANKLE FRACTURE. SHE IS NPO SINCE MIDNIGHT. HX OF CHRONIC PAIN
--- NOTE | 2021-11-02 13:56 | NUR ---
PATIENT BROUGHT TO ROOM 207 ADN PLACED ON THE MONITOR, IV, O2 AND SUCTION ALL AVAILABLE AT THE BEDSIDE. ANESTHESIA, DAY WORKER AND DR. GARLAND ALL TO ARRIVE FOR SCHEDULED JOSE IN 20 MINUTES. PATIENT HAS BEEN NPO EXCEPT FOR MEDICATIONS AND SMALL SIPS OF WATER EARLIER THIS A.M.
--- NOTE | 2021-11-02 14:06 | NUR ---
DR. GARLAND AT THE BEDSIDE AND PATIENT CONSENT FOR THE JOSE. CONSENT PLACED ON THE CHART. PATIENT ALSO SIGNED THE BLOOD CONSENT , WHICH WAS PLACED ON THE CHART.
--- NOTE | 2021-11-02 14:37 | NUR ---
PATIENT TOLERATED JOSE WELL. RECOVERED IN ROOM 207.
--- NOTE | 2021-11-02 14:51 | NUR ---
PATIENT WAKING NICELY AND NO PAIN NOTED FROM PATIENT TO THE THROAT OR CHEST. VVS. PATIENT PLACED BACK ON THEIR TELE MONITOR. PATIENT SBAR CALLED TO RN AND PATIENT TAKEN BACK TO ROOM 364 VIA BED.
--- NOTE | 2021-11-02 18:22 | NUR ---
Pt. is in bed eating dinner. Pt. welcomes my visit. Pt. is unsettled about her need for long term care social worker medical assistance. Explored family history, and the role barbi has playedin her life. Pt. verbalizes she might need an assisted living or adult foster chcf. Listen empathetically with a calming presence. Pt. allowed me to pray with her and verbalized gratitude for the spiritual care visit.
--- NOTE | 2021-11-02 19:29 | NUR ---
SHIFT SUMMARY PATIENT A&0X4. 1PA TO BSC. C/O BACK PAIN, MEDICATED PER JUL. NPO THIS AM FOR JOSE PROCEDURE COMPLETED THIS AFTERNOON. NO SIGNIFICANT EVENTS. REPORT GIVEN TO ONCOMING RN.
--- NOTE | 2021-11-03 05:16 | NUR ---
SHIFT SUMMARY PT HAS BEEN SLEEPING WELL ALL NIGHT. NO ACUTE CHANGES. SHE DID ASK FOR PAIN MEDICATION TWICE. NO OTHER COMPLAINTS WHEN ASKED. CALL LIGHT WITHIN REACH
--- NOTE | 2021-11-03 17:45 | NUR ---
SHIFT SUMMARY A&OX4. 1PA TO BSC. WORKED WITH PT TODAY. C/O BACK PAIN STATING ITS WORSE AND ON BOTH SIDES. MEDICATED PER MAR. RECEIVING ANTIBIOTICS. NO SIGNIFICANT EVENTS. WILL CONTINUE TO MONITOR.
--- NOTE | 2021-11-04 04:54 | NUR ---
SHIFT SUMMARY NO ACUTE CHANGES THIS SHIFT. PT REQUESTED PAIN MEDICATION TEICE AND HAS BEEN UP TO USE TH BEDSIDE COMMONDE. SHE WILL NOT LET US SHIFT HER IN BED AND WISHES TO BE LEFT TO TURN HERSELF DESPITE BEING EDUCATED ABOUT REASON FOR TURNING. SHE STILL HAS NOT HAD A NOTED BOWEL MOVEMENT. CALL LIGHT WITHIN REACH.
[2021-11-04 05:22] LABS: BASOPHILS ABSOLUTE AUTO 0.06 K/mm3 (0.00-0.23); BASOPHILS PERCENT AUTO 1 % (0-2); EOSINOPHILS ABSOLUTE AUTO 0.13 K/mm3 (0.00-0.68); EOSINOPHILS PERCENT AUTO 2 % (0-6); Hemoglobin 9.4 g/dL (11.5-16.0); IMMATURE GRAN ABSOLUTE AUTO 0.05 K/mm3 (0.00-0.10); IMMATURE GRAN PERCENT AUTO 1 % (0-1); LYMPHOCYTES ABSOLUTE AUTO 2.17 K/mm3 (0.84-5.20); LYMPHOCYTES PERCENT AUTO 27 % (21-46); MONOCYTES ABSOLUTE AUTO 0.83 K/mm3 (0.16-1.47); MONOCYTES PERCENT AUTO 11 % (4-13); Mean Corpuscular HGB Conc 30.3 g/dL (31.5-36.5); Mean Corpuscular Volume 86 fL (80-100); Mean Platelet Volume 8.5 fL (9.1-12.4); NEUTROPHILS ABSOLUTE AUTO 4.69 K/mm3 (1.96-9.15); NEUTROPHILS PERCENT AUTO 59 % (41-73); Platelet Count 386 K/mm3 (150-400); RDW Coefficient Variation 16.4 % (11.7-14.2); RDW Standard Deviation 52.4 fL (35.1-46.3); Red Blood Cell Count 3.61 M/mm3 (3.80-5.20); White Blood Cell Count 7.93 K/mm3 (4.00-11.30)
[2021-11-04 06:08] LABS: Alanine Aminotransfer (ALT/SGP <6 U/L (12-78); Albumin, Blood 2.3 g/dL (3.4-5.0); Albumin/Globulin Ratio 0.5 (0.8-1.8); Alk Phos 116 U/L (50-136); Anion Gap 9 mmol/L (6-16); Aspartate Aminotrans (AST/SGOT 9 U/L (12-37); Bilirubin, Total 0.4 mg/dL (0.1-1.0); Blood Urea Nitrogen 28 mg/dL (8-24); Bun/Creatinine Ratio 39.7 (12.0-20.0); CO2, Blood 27 mmol/L (21-32); Calcium, Blood 9.3 mg/dL (8.5-10.1); Chloride, Blood 102 mmol/L (98-108); Creatinine, Blood 0.71 mg/dL (0.40-1.00); Globulin, Blood 4.9 g/dL (2.2-4.0); Glomerular Filtration Rate 94 (60-); Glucose, Blood 146 mg/dL (70-99); Potassium, Blood 4.7 mmol/L (3.5-5.5); Sodium, Blood 138 mmol/L (136-145); Total Protein, Blood 7.2 g/dL (6.4-8.2)
--- NOTE | 2021-11-04 18:42 | NUR ---
SUMMARY- PT A/O X4. SBA TO BSC NWB L FOOT. HAD CT OF ABD TODAY RELATED TO CONT PAIN IN "KIDNEY REGION"- STATES IT IS THE SAME PAIN SHE HAD WHEN SHE HAD KIDNEY STONES. VSS. BLOOD SUGARS MONITORED AND COVERED WITH SSI. RECEIVED LAX, WILL START BOWEL CARE. WILL REPORT TO NOC RN
--- NOTE | 2021-11-05 04:23 | NUR ---
SHIFT SUMMARY PT IS COMPLAINING MORE OF PAIN TODAY. PT STILL HAS HAD NOT HAD A BOWEL MOVEMENT IN ALMOST A WEEK, SHE IS STARTING TO FEEL MORE CRAMPING AND PAIN IN HER LOWER ABDOMEN. SHE IS STARTING TO BECOME ANXIOUS ABOUT IT. SOME PRNS ORDERED AND GIVEN. PT ALSO HAVING SOME MORE DIFFICULTY GETTING TO THE BEDSIDE COMMODE DUE TO HAVING MORE PAIN. CALL LIGHT IN REACH
[2021-11-05 05:47] LABS: BASOPHILS ABSOLUTE AUTO 0.06 K/mm3 (0.00-0.23); BASOPHILS PERCENT AUTO 1 % (0-2); EOSINOPHILS ABSOLUTE AUTO 0.18 K/mm3 (0.00-0.68); EOSINOPHILS PERCENT AUTO 2 % (0-6); Hematocrit 29.9 % (33.0-51.0); Hemoglobin 9.2 g/dL (11.5-16.0); IMMATURE GRAN ABSOLUTE AUTO 0.06 K/mm3 (0.00-0.10); IMMATURE GRAN PERCENT AUTO 1 % (0-1); LYMPHOCYTES ABSOLUTE AUTO 1.75 K/mm3 (0.84-5.20); LYMPHOCYTES PERCENT AUTO 21 % (21-46); MONOCYTES ABSOLUTE AUTO 0.98 K/mm3 (0.16-1.47); MONOCYTES PERCENT AUTO 12 % (4-13); Mean Corpuscular HGB 26.4 pg (26.0-34.0); Mean Corpuscular HGB Conc 30.8 g/dL (31.5-36.5); Mean Corpuscular Volume 86 fL (80-100); Mean Platelet Volume 8.5 fL (9.1-12.4); NEUTROPHILS ABSOLUTE AUTO 5.34 K/mm3 (1.96-9.15); NEUTROPHILS PERCENT AUTO 64 % (41-73); Platelet Count 410 K/mm3 (150-400); RDW Coefficient Variation 16.6 % (11.7-14.2); RDW Standard Deviation 51.8 fL (35.1-46.3); Red Blood Cell Count 3.48 M/mm3 (3.80-5.20); White Blood Cell Count 8.37 K/mm3 (4.00-11.30)
[2021-11-05 06:06] LABS: Alanine Aminotransfer (ALT/SGP <6 U/L (12-78); Albumin, Blood 2.4 g/dL (3.4-5.0); Albumin/Globulin Ratio 0.5 (0.8-1.8); Alk Phos 121 U/L (50-136); Anion Gap 5 mmol/L (6-16); Aspartate Aminotrans (AST/SGOT 10 U/L (12-37); Bilirubin, Total 0.3 mg/dL (0.1-1.0); Blood Urea Nitrogen 27 mg/dL (8-24); Bun/Creatinine Ratio 34.7 (12.0-20.0); CO2, Blood 32 mmol/L (21-32); Calcium, Blood 9.4 mg/dL (8.5-10.1); Chloride, Blood 100 mmol/L (98-108); Creatinine, Blood 0.78 mg/dL (0.40-1.00); Globulin, Blood 4.8 g/dL (2.2-4.0); Glomerular Filtration Rate 84 (60-); Glucose, Blood 133 mg/dL (70-99); Potassium, Blood 4.8 mmol/L (3.5-5.5); Sodium, Blood 137 mmol/L (136-145); Total Protein, Blood 7.2 g/dL (6.4-8.2)
--- NOTE | 2021-11-05 19:52 | NUR ---
SUMMARY- PT A/O X4. CONT TO HAVE INTERMITTANT BACK PAIN. MEDICATED WITH ONE NORCO TWICE EARLY AFTERNOON WITH GOOD EFFECT AEB PT NAPPING AFTER DOSE. HAD LAXATIVE AND XLG SOFT BROWN BM ONCE THIS AM. STATES SHE FEELS BETTER BUT THAT IT DIDN'T CHANGE THE PAIN IN HER BACK. PT WAS ABLE TO USE WALKER TO BATHROOM, NWB L FOOT. SITS UP IN BED FOR MEALS AND TOLERATING FOOD AND FLUIDS. SKIN REMAINS INTACT. PLAN FOR MRI OF T-SPINE FOR FURTHER DX STUDY. REPOETED ALL TO ESTEBAN HERNANDEZ.
[2021-11-06 04:41] LABS: BASOPHILS ABSOLUTE AUTO 0.04 K/mm3 (0.00-0.23); BASOPHILS PERCENT AUTO 1 % (0-2); EOSINOPHILS ABSOLUTE AUTO 0.15 K/mm3 (0.00-0.68); EOSINOPHILS PERCENT AUTO 2 % (0-6); Hematocrit 30.5 % (33.0-51.0); Hemoglobin 9.2 g/dL (11.5-16.0); IMMATURE GRAN ABSOLUTE AUTO 0.05 K/mm3 (0.00-0.10); IMMATURE GRAN PERCENT AUTO 1 % (0-1); LYMPHOCYTES PERCENT AUTO 22 % (21-46); MONOCYTES PERCENT AUTO 9 % (4-13); Mean Corpuscular HGB 26.1 pg (26.0-34.0); Mean Corpuscular HGB Conc 30.2 g/dL (31.5-36.5); Mean Corpuscular Volume 86 fL (80-100); Mean Platelet Volume 8.5 fL (9.1-12.4); NEUTROPHILS ABSOLUTE AUTO 5.34 K/mm3 (1.96-9.15); NEUTROPHILS PERCENT AUTO 66 % (41-73); Platelet Count 387 K/mm3 (150-400); RDW Coefficient Variation 16.5 % (11.7-14.2); RDW Standard Deviation 52.2 fL (35.1-46.3); Red Blood Cell Count 3.53 M/mm3 (3.80-5.20); White Blood Cell Count 8.08 K/mm3 (4.00-11.30)
[2021-11-06 05:00] LABS: Bun/Creatinine Ratio 39.1 (12.0-20.0); Calcium, Blood 9.4 mg/dL (8.5-10.1); Creatinine, Blood 0.77 mg/dL (0.40-1.00)
--- NOTE | 2021-11-06 06:36 | NUR ---
SHIFT SUMMARY PT CONTINUES TO HAVE PAIN. SHE HAS BEEN MEDICATED PER EMAR. PT SLEPT A LITTLE OVER NIGHT. WHEN ASKED IF SHE WANTED THE DR CALLED TO SEE ABOUT A DIFFERENT MEDICATION OPTION, SHE STS SHE WILL WAIT FOR THEM THIS MORNING. PT PLEASANT AND COOPERATIVE. PT HAD ONE INSTANCE OF LOOSE STOOLS LAST EVENING, STOOL WAS BROWN AND LIQUID LIKE. PT HAS CALL LIGHT WITHIN REACH.
--- NOTE | 2021-11-06 18:49 | NUR ---
NURSE NOTE PRE DINNER CBG 56, PATIENT STATES SHE FEELS FINE, NO SYMPTOMS. APPLE JUICE AND LIANNA CRACKERS GIVEN, CBG RECHECKED 30MIN LATER 61. ANOTHER APPLE JUICE AND LIANNA CRACKERS GIVEN. CBG RECHECKED 45 MIN LATER 83 AND DINNER GIVEN.
--- NOTE | 2021-11-06 19:13 | NUR ---
SHIFT SUMMARY PATIENT A&OX4. [place] [facility] WEIGHT BEARING ON LEFT ANKLE. C/O PAIN IN BACK, MEDICATED PER MAR X3. WENT FOR MRI TODAY. WILL NEED IV ANTIBIOTICS CONFERENCE RESERVATIONIST. PATIENT SLEPT MOST OF AFTERNOON. LOW CBG THIS EVENING BUT BACK TO NORMAL RANGE BY THE TIME DINNER ARRIVED. REPORT GIVEN TO CRISTOPHER HERNANDEZ.
[2021-11-07 04:36] LABS: BASOPHILS ABSOLUTE AUTO 0.04 K/mm3 (0.00-0.23); BASOPHILS PERCENT AUTO 1 % (0-2); EOSINOPHILS ABSOLUTE AUTO 0.21 K/mm3 (0.00-0.68); EOSINOPHILS PERCENT AUTO 3 % (0-6); Hematocrit 29.6 % (33.0-51.0); IMMATURE GRAN ABSOLUTE AUTO 0.05 K/mm3 (0.00-0.10); IMMATURE GRAN PERCENT AUTO 1 % (0-1); LYMPHOCYTES ABSOLUTE AUTO 1.64 K/mm3 (0.84-5.20); LYMPHOCYTES PERCENT AUTO 19 % (21-46); MONOCYTES ABSOLUTE AUTO 0.83 K/mm3 (0.16-1.47); MONOCYTES PERCENT AUTO 10 % (4-13); Mean Corpuscular HGB 26.4 pg (26.0-34.0); Mean Corpuscular HGB Conc 30.4 g/dL (31.5-36.5); Mean Corpuscular Volume 87 fL (80-100); Mean Platelet Volume 8.5 fL (9.1-12.4); NEUTROPHILS ABSOLUTE AUTO 5.67 K/mm3 (1.96-9.15); NEUTROPHILS PERCENT AUTO 67 % (41-73); Platelet Count 371 K/mm3 (150-400); RDW Coefficient Variation 16.9 % (11.7-14.2); RDW Standard Deviation 53.8 fL (35.1-46.3); Red Blood Cell Count 3.41 M/mm3 (3.80-5.20); White Blood Cell Count 8.44 K/mm3 (4.00-11.30)
--- NOTE | 2021-11-07 04:53 | NUR ---
SHIFT SUMMARY ADMITTED FOR BACTEREMIA. FULL CODE. SHE MAY REQUIRE A PICC LINE FOR OPEN PIT QUARRY SUPERVISOR ANTIB RX. PLAN IS FOR PLACEMENT AT [facility]. A&O X4. IV ANTIB RX ARE SCHEDULED. SHE IS ON RA. ADA DIET. HER STOOLS HAVE BEEN LOOSE. SHE IS 1 ASSIST TO BSC W/FWW. HX OF SEVERE NEUROPATHY, FRACTURED LEFT ANKLE.
[2021-11-07 04:57] LABS: Calcium, Blood 9.4 mg/dL (8.5-10.1); Creatinine, Blood 0.81 mg/dL (0.40-1.00); Potassium, Blood 5.1 mmol/L (3.5-5.5)
--- NOTE | 2021-11-07 16:46 | NUR ---
SHIFT SUMMARY PATIENT IS ALERT AND ORIENTED. PATIENT HAS HAD NO ACUTE EVENTS THIS SHIFT. PATIENT IS ADMITTED FOR BACTEREMIA. PATIENT NEEDS 6 WEEKS OF ANTIBIOTICS. PATIENT WAS ACCEPTED FOR SNF AND HAS HAD A PICC LINE PLACED TODAY. PATIENT IS AWAITING DISCHARGE TO SNF WHEN CARE MANAGEMENT HAS EVERYTHING SET UP. PATIENT HAS HAD NO COMPLAINTS OF PAIN, NAUSEA, SOB OR VOMITTING THIS SHIFT. PATIENT HAS BEEN A 1 PERSON ASSIST TO BEDSIDE COMMODE. BED IN LOCKED AND LOWEST POSITION. CALL LIGHT IN PLACE. WILL MONITOR UNTIL SHIFT CHANGE.
--- NOTE | 2021-11-08 07:25 | NUR ---
SHIFT SUMMARY: PATIENT A/OX3-4, SOME BACK PAIN REPORTED MANAGED WITH MEDICATIONS VIA EMAR- PLEASE REVIEW ADMINISTRATION. PATIENT EXPERIENCED HYPOGLYCEMIA BLOOD SUGAR DOWN TO 48, NONSYMPTOMATIC OTHER THAN FEELING HUNGRY. POST ADMINSTRATION OF JUICE, ENSURE, MUFFIN, AND POPSICLE BLOOD SUGAR ONLY RAISED TO 51. MD CONTACTED AND PLACED ORDER FOR IV FLUIDS CONTAINING DEXTROSE. BLOOD SUGAR CHECKED AND WAS RAISED TO 137, GOAL TO CONTINUED FLUIDS TILL CBG 150>. PLEASE REVIEW FLUID ADMINISTRATION INSTRUCTIONS FOR FURTHER DETAILS. BED ALARM ACTIVATED, BED IN LOW POSITION, CALL WINN IN REACH.
--- NOTE | 2021-11-08 17:47 | NUR ---
SHIFT SUMMARY PATIENT IS ALERT AND ORIENTED. PATIENT HAS BEEN PLEASENT AND COOPERATIVE WITH CARE THIS SHIFT. PATIENT HAS HAD SOME PAIN IN BACK BUT HAS IMPROVED THIS SHIFT VS PRIOR SHIFTS. PATIENT HAS HAD NO ACUTE EVENTS THIS SHIFT. PATIENT HAS HAD HTN THIS SHIFT, MEDICATED PER EMAR. PATIENT HAS HAD A COUPLE OF INCONTINENT LIQUID BOWEL MOVEMENTS THIS SHIFT. BED IN LOCKED AND LOWEST POSITION. CALL LIGHT IN PLACE. WILL MONITOR UNTIL SHIFT CHANGE.
--- NOTE | 2021-11-09 07:47 | NUR ---
Rn summary" Patient is alert and oriented. Pt is pleasant and cooperative. Patient was medicated x1 for back pain. Pt does get up to BSC with one assist. Left ankle was injured and left leg is shorter. Pt puts most of her wt on rt leg. Pt lungs clear but dim in bases, deep breathing taught and demonstrated. Heart rate is irregular and low 100's. Pt did rest well. Hopes for DC to [place] today. Picc line to left upper arm flushes well. Call light in reach.
[2021-11-09 11:49] LABS: Influenza A, PCR NEGATIVE (NEGATIVE); Influenza B, PCR NEGATIVE (NEGATIVE); Resp Syncytial Virus, PCR NEGATIVE (NEGATIVE); SARS-Cov-2 (COVID-19) PCR, MMC NEGATIVE (NEGATIVE)
[2021-11-09] MEDS ORDERED: Calcium Carbon500 MG PO (12:15)
[2021-11-09] MEDS ORDERED: CEFAZOLIN2 GM/50 M3 IV (12:16)
[2021-11-09] MEDS ORDERED: CLOT10 MT (12:17)
[2021-11-09] MEDS ORDERED: LISI20 PO (12:18)
[2021-11-09] MEDS ORDERED: HYDCHL25 PO (12:18)
[2021-11-09] MEDS ORDERED: Percocet 10-321 EACH PO (12:20)
[2021-11-09] MEDS ORDERED: MIRALAX17 GM PO (12:20)
[2021-11-09] MEDS ORDERED: THERA-D2000 UNIT PO (12:21)
--- NOTE | 2021-11-09 13:18 | NUR ---
DISCHARGE PATIENT TRANSPORTED VIA WHEELCHAIR TO AMBULANCE. PATIENT DISCHARGED TO [facility]. DISCHARGE PACKET FAXED TO [facility], PACKET ALSO SENT WITH [employer] INSTALLER. HARD SCRIPT SENT IN PACKET. PICC LINE TO [facility] AND PATENT AT TIME OF DISCHARGE. BELONGINGS SENT WITH PATIENT. MEDICATIONS FAXED TO [facility]. [facility] TO SCHEDULE FOLLOW UP APPOINTMENTS. REPORT CALLED TO LUPILLO CATES RN.
== END 2021-11-09 13:13 | DRG 872 ==
LOC: ER 16:20 → MEDS 20:42
PROVIDERS: Internal Medicine; Physician Assistant; ADMIT Internal Medicine
PROC: 3E04329 Introduction of Other Anti-infective into Central Vein, Percutaneous Approach (ICD-10-PCS; principal; 2021-10-28)
PROC: 02HV33Z Insertion of Infusion Device into Superior Vena Cava, Percutaneous Approach (ICD-10-PCS; 2021-11-07)
PROC: 4A02X4A Measurement of Cardiac Electrical Activity, Guidance, External Approach (ICD-10-PCS; 2021-11-07)
DX: R78.81 Bacteremia (principal); N39.0 Urinary tract infection, site not specified; Z20.822 Contact with and (suspected) exposure to COVID-19; E11.621 Type 2 diabetes mellitus with foot ulcer; L97.529 Non-pressure chronic ulcer of other part of left foot with unspecified severity; I10 Essential (primary) hypertension; E78.5 Hyperlipidemia, unspecified; Z51.5 Encounter for palliative care; M79.7 Fibromyalgia; E53.8 Deficiency of other specified B group vitamins; D63.8 Anemia in other chronic diseases classified elsewhere; K59.00 Constipation, unspecified; K58.0 Irritable bowel syndrome with diarrhea; K21.9 Gastro-esophageal reflux disease without esophagitis; M46.44 Discitis, unspecified, thoracic region; E11.610 Type 2 diabetes mellitus with diabetic neuropathic arthropathy; B95.61 Methicillin susceptible Staphylococcus aureus infection as the cause of diseases classified elsewhere; Z91.14 Patient's other noncompliance with medication regimen; Z98.890 Other specified postprocedural states; Z88.2 Allergy status to sulfonamides; Z88.8 Allergy status to other drugs, medicaments and biological substances; Z91.048 Other nonmedicinal substance allergy status; Z79.4 Long term (current) use of insulin; Z79.899 Other long term (current) drug therapy
CPT/HCPCS: 0241U; 36415; 36569; 70487; 72157; 73701; 74177; 80048; 80053; 80202; 82947; 83605; 83690; 85025; 87040; 93308; 93312; 93321; 93325; 96365-59; 96367-59; 96375-59; 97110; 97162; 97166; 97530; 97535; 99285-25; A9270; A9579; C1751; C9113; J0360; J0690; J1650; J1815; J1885; J1956; J2270; J2405; J2704; J3370; J7030; J7042; J7050; J7060; Q9967